=== PATIENT | female | born 1950 | race Caucasian/White ===

== ENCOUNTER 2017-02-03 17:18 | Inpatient (IN) | payer OTHER ==
[~2017-02-03] VITALS: Ht 172.7 cm; Wt 83.7 kg
[2017-02-03 17:59] LABS: HEMATOCRIT 40.8 % (36.0-46.0); MCH 29.4 PG (29.0-34.0); MCHC 33.3 G/DL (30.0-36.0); MCV 88.1 FL (83-99); MEAN PLAT.VOLUME 9.8 uM^3 (9.5-12.4); PLATELET COUNT 238 K/uL (156-360); RBC DIS.WIDTH-CV 12.5 % (11.8-14.6); RBC DIS.WIDTH-SD 40.4 % (39-53); RED BLOOD COUNT 4.63 M/uL (3.80-5.20); WHITE BLOOD COUNT 19.8 K/uL (4.1-10.2)
[2017-02-03 17:59] LABS: ADD MIUA? YES; BILIRUBIN NEGATIVE; BLOOD MODERATE; COLOR YELLOW ((YELLOW)); GLUCOSE (STRIP) 50; KETONES NEGATIVE; LEUKOCYTES LARGE; NITRITE NEGATIVE; PROTEIN (STRIP) >=500; SPECIFIC GRAVITY 1.011 (1.000-1.030); UROBILINOGEN 0.2 MG/DL (0.2-1.0)
[2017-02-03 18:10] LABS: CHLORIDE 108 mEq/L (99-109); POTASSIUM 4.2 mEq/L (3.7-5.4); SODIUM 137 mEq/L (136-147)
[2017-02-03 18:12] LABS: GLUCOSE 136 mg/dL (70-99)
[2017-02-03 18:13] LABS: ANION GAP 9 MEQ/L (2-14)
[2017-02-03 18:16] LABS: GFR ESTIMATE (CALCULATED) 23 mL/min/
[2017-02-03 18:17] LABS: UREA NITROGEN (BUN) 59 mg/dL (9-23)
[2017-02-03 18:23] LABS: BACTERIA 3+ /HPF; CASTS NONE SEEN /LPF; CRYSTALS NONE SEEN; EPITHELIAL CELLS 1+ /HPF; MUCUS NONE SEEN /LPF; UCUL ADDED? YES; WHITE BLOOD CELLS 40-50 /HPF (0-5)
[2017-02-03 18:46] LABS: POINT-OF-CARE METER ID UU13113702
[2017-02-03] MEDS ORDERED: CRESTOR10 MG PO (19:44)
[2017-02-03] MEDS ORDERED: CARVEDILOL25 MG PO (19:44)
[2017-02-03] MEDS ORDERED: CHLORTHALIDONE25 MG PO (19:44)
[2017-02-03] MEDS ORDERED: UNITHROID75 MCG PO (19:45)
[2017-02-03] MEDS ORDERED: ASPIR 8181 M1 PO (19:45)
[2017-02-03] MEDS ORDERED: PROZAC20 MG PO (19:45)
[2017-02-03] MEDS ORDERED: VITAMIN D32000 UNI1 PO (19:45)
[2017-02-03] MEDS ORDERED: ULORIC80 MG PO (19:45)
[2017-02-03] MEDS ORDERED: NOVOLOG 10100 UNITS/ SC (19:45)
[2017-02-03] MEDS ORDERED: TOUJEO SOL300 UNIT/1 SC (19:45)
[2017-02-03] MEDS ORDERED: BIOTIN10000 MC1 PO (19:46)
[2017-02-03] MEDS ORDERED: FISH OIL 1,2001 EAC4 PO (19:46)
[2017-02-03] MEDS ORDERED: BENICAR40 MG PO (19:46)
[2017-02-03 21:51] VITALS: BP 200/90
[2017-02-03 22:46] LABS: POINT-OF-CARE METER ID UU14314084
[2017-02-03 23:42] VITALS: BP 165/77
[2017-02-04 04:07] VITALS: BP 160/68
[2017-02-04 06:36] LABS: HEMATOCRIT 34.7 % (36.0-46.0); MCH 28.8 PG (29.0-34.0); MCHC 32.9 G/DL (30.0-36.0); MCV 87.6 FL (83-99); MEAN PLAT.VOLUME 9.7 uM^3 (9.5-12.4); PLATELET COUNT 200 K/uL (156-360); RBC DIS.WIDTH-CV 12.5 % (11.8-14.6); RBC DIS.WIDTH-SD 40.2 % (39-53); RED BLOOD COUNT 3.96 M/uL (3.80-5.20); WHITE BLOOD COUNT 17.8 K/uL (4.1-10.2)
[2017-02-04 07:00] LABS: ANION GAP 9 MEQ/L (2-14); CHLORIDE 113 MEQ/L (99-109); GFR ESTIMATE (CALCULATED) 25 mL/min/; GLUCOSE 127 mg/dL (70-99); POTASSIUM 4.4 MEQ/L (3.7-5.4); SAMPLE HEMOLYSIS CHECK 0; SAMPLE ICTERIC CHECK 0; SAMPLE LIPEMIA CHECK 0; SODIUM 139 MEQ/L (136-147); UREA NITROGEN (BUN) 53 mg/dL (9-23)
[2017-02-04 07:02] LABS: POINT-OF-CARE METER ID UU14314084
[2017-02-04 08:00] VITALS: BP 162/76
[2017-02-04 11:31] VITALS: BP 170/78
[2017-02-04 11:38] LABS: POINT-OF-CARE METER ID UU14314084
[2017-02-04 16:13] VITALS: BP 140/67
[2017-02-04 16:41] LABS: POINT-OF-CARE METER ID UU14162508
[2017-02-04 20:15] VITALS: BP 155/75
[2017-02-04 21:40] LABS: POINT-OF-CARE METER ID UU14314084
[2017-02-05 00:04] VITALS: BP 118/57
[2017-02-05 06:22] LABS: POINT-OF-CARE METER ID UU14314084
[2017-02-05 07:05] VITALS: BP 160/75
[2017-02-05 07:10] LABS: HEMATOCRIT 38.1 % (36.0-46.0); MCH 28.6 PG (29.0-34.0); MCV 89.2 FL (83-99); MEAN PLAT.VOLUME 9.7 uM^3 (9.5-12.4); PLATELET COUNT 217 K/uL (156-360); RBC DIS.WIDTH-CV 12.7 % (11.8-14.6); RBC DIS.WIDTH-SD 41.4 % (39-53); RED BLOOD COUNT 4.27 M/uL (3.80-5.20)
[2017-02-05 07:37] LABS: ANION GAP 9 MEQ/L (2-14); CHLORIDE 108 MEQ/L (99-109); GFR ESTIMATE (CALCULATED) 21 mL/min/; GLUCOSE 115 mg/dL (70-99); POTASSIUM 4.3 MEQ/L (3.7-5.4); SAMPLE HEMOLYSIS CHECK 0; SAMPLE ICTERIC CHECK 0; SAMPLE LIPEMIA CHECK 0; SODIUM 139 MEQ/L (136-147); UREA NITROGEN (BUN) 56 mg/dL (9-23)
[2017-02-05 11:21] LABS: POINT-OF-CARE METER ID UU14314084
[2017-02-05 16:11] LABS: POINT-OF-CARE METER ID UU14314084
[2017-02-05 17:50] VITALS: BP 188/84
[2017-02-05 21:48] LABS: POINT-OF-CARE METER ID UU14208750
[2017-02-06 00:35] VITALS: BP 126/65
[2017-02-06 06:13] LABS: POINT-OF-CARE METER ID UU14314084
[2017-02-06 06:18] LABS: HEMATOCRIT 34.6 % (36.0-46.0); MCH 28.9 PG (29.0-34.0); MCHC 32.7 G/DL (30.0-36.0); MCV 88.5 FL (83-99); MEAN PLAT.VOLUME 9.9 uM^3 (9.5-12.4); PLATELET COUNT 214 K/uL (156-360); RBC DIS.WIDTH-CV 12.5 % (11.8-14.6); RBC DIS.WIDTH-SD 40.2 % (39-53); RED BLOOD COUNT 3.91 M/uL (3.80-5.20); WHITE BLOOD COUNT 10.3 K/uL (4.1-10.2)
[2017-02-06 06:48] LABS: ANION GAP 12 MEQ/L (2-14); CHLORIDE 107 MEQ/L (99-109); GFR ESTIMATE (CALCULATED) 21 mL/min/; GLUCOSE 164 mg/dL (70-99); POTASSIUM 4.5 MEQ/L (3.7-5.4); SAMPLE HEMOLYSIS CHECK 0; SAMPLE ICTERIC CHECK 0; SAMPLE LIPEMIA CHECK 0; SODIUM 137 MEQ/L (136-147); UREA NITROGEN (BUN) 65 mg/dL (9-23)
[2017-02-06 08:23] VITALS: BP 158/74
[2017-02-06] MEDS ORDERED: CIPRO500 MG PO (09:59)
== END 2017-02-06 12:00 | disposition home or self-care (01) | DRG 690 ==
LOC: EME 17:18 → EDOF 19:40 → 2EAST 19:40 → ENRESERV 19:41 → 2EAST 21:46
PROVIDERS: Emergency Medicine; Hospitalist; Physician Assistant Medical
DX: N10 Acute pyelonephritis (principal); N17.9 Acute kidney failure, unspecified; I12.9 Hypertensive chronic kidney disease with stage 1 through stage 4 chronic kidney disease, or unspecified chronic kidney disease; N18.4 Chronic kidney disease, stage 4 (severe); E86.0 Dehydration; E83.52 Hypercalcemia; E87.2 Acidosis; E87.8 Other disorders of electrolyte and fluid balance, not elsewhere classified; E11.22 Type 2 diabetes mellitus with diabetic chronic kidney disease; E11.21 Type 2 diabetes mellitus with diabetic nephropathy; E11.65 Type 2 diabetes mellitus with hyperglycemia; B96.20 Unspecified Escherichia coli [E. coli] as the cause of diseases classified elsewhere; I25.10 Atherosclerotic heart disease of native coronary artery without angina pectoris; E78.5 Hyperlipidemia, unspecified; N25.81 Secondary hyperparathyroidism of renal origin; J45.909 Unspecified asthma, uncomplicated; E03.9 Hypothyroidism, unspecified; M1A.9XX0 Chronic gout, unspecified, without tophus (tophi); F32.9 Major depressive disorder, single episode, unspecified; F41.9 Anxiety disorder, unspecified; E55.9 Vitamin D deficiency, unspecified; M19.90 Unspecified osteoarthritis, unspecified site; Z79.4 Long term (current) use of insulin; Z79.82 Long term (current) use of aspirin; Z85.048 Personal history of other malignant neoplasm of rectum, rectosigmoid junction, and anus; Z87.440 Personal history of urinary (tract) infections; Z87.442 Personal history of urinary calculi; Z90.5 Acquired absence of kidney; Z93.3 Colostomy status; Z87.891 Personal history of nicotine dependence; Z88.2 Allergy status to sulfonamides
CPT/HCPCS: 74176; 80048; 81003; 82948; 85027; 87077; 87086; 87186; 99281; 99285; J0696; J1650; J1815; J7030

== ENCOUNTER 2017-02-15 16:10 | Inpatient (IN) | payer OTHER ==
[~2017-02-15] VITALS: Ht 154.9 cm; Wt 85.5 kg
[~2017-02-15 16:10] MED LIST: ASPIR 8181 M1 PO; BENICAR40 MG PO; BIOTIN10000 MC1 PO; CARVEDILOL25 MG PO; CHLORTHALIDONE25 MG PO; CIPRO500 MG PO; CRESTOR10 MG PO; FISH OIL 1,2001 EAC4 PO; NOVOLOG 10100 UNITS/ SC; PROZAC20 MG PO; TOUJEO SOL300 UNIT/1 SC; ULORIC80 MG PO; UNITHROID75 MCG PO; VITAMIN D32000 UNI1 PO
[2017-02-15 16:54] LABS: HEMOGLOBIN 11.9 G/DL (11.9-15.5); MCH 29.8 PG (29.0-34.0); MCV 87.5 FL (83-99); PLATELET COUNT 256 K/uL (156-360); RBC DIS.WIDTH-CV 12.4 % (11.8-14.6); RBC DIS.WIDTH-SD 39.7 % (39-53); WHITE BLOOD COUNT 17.3 K/uL (4.1-10.2)
[2017-02-15 17:04] LABS: CHLORIDE 110 mEq/L (99-109); POTASSIUM 5.1 mEq/L (3.7-5.4); SODIUM 134 mEq/L (136-147)
[2017-02-15 17:05] LABS: GLUCOSE 198 mg/dL (70-99)
[2017-02-15 17:09] LABS: GFR ESTIMATE (CALCULATED) 17 mL/min/
[2017-02-15 17:10] LABS: CREATININE 2.9 mg/dL (0.6-1.3); UREA NITROGEN (BUN) 75 mg/dL (9-23)
[2017-02-15 21:13] LABS: HEMOGLOBIN 10.9 G/DL (11.9-15.5); MCH 29.8 PG (29.0-34.0); MCHC 34.1 G/DL (30.0-36.0); MCV 87.4 FL (83-99); PLATELET COUNT 228 K/uL (156-360); RBC DIS.WIDTH-CV 12.2 % (11.8-14.6); RBC DIS.WIDTH-SD 39.6 % (39-53); RED BLOOD COUNT 3.66 M/uL (3.80-5.20); WHITE BLOOD COUNT 18.3 K/uL (4.1-10.2)
[2017-02-15 21:34] VITALS: BP 181/81
[2017-02-15 23:35] VITALS: BP 141/70
[2017-02-16 04:11] VITALS: BP 132/63
[2017-02-16 07:35] LABS: HEMATOCRIT 29.1 % (36.0-46.0); HEMOGLOBIN 9.4 G/DL (11.9-15.5); MCV 88.2 FL (83-99)
[2017-02-16 07:45] VITALS: BP 135/60
[2017-02-16 08:01] LABS: GLUCOSE 123 mg/dL (70-99); POTASSIUM 4.6 MEQ/L (3.7-5.4); UREA NITROGEN (BUN) 62 mg/dL (9-23)
[2017-02-16 08:02] LABS: CHLORIDE 116 MEQ/L (99-109); CREATININE 2.4 MG/DL (0.6-1.3); GFR ESTIMATE (CALCULATED) 21 mL/min/; SODIUM 141 MEQ/L (136-147)
[2017-02-16 11:52] VITALS: BP 162/76
[2017-02-16 16:27] VITALS: BP 147/70
[2017-02-16 16:28] LABS: C DIFF TOXIN NEGATIVE (NEGATIVE)
[2017-02-16 19:26] VITALS: BP 185/83
[2017-02-16 20:27] LABS: HEMATOCRIT 29.3 % (36.0-46.0); HEMOGLOBIN 9.8 G/DL (11.9-15.5); MCV 88.3 FL (83-99)
[2017-02-17 00:40] VITALS: BP 145/66
[2017-02-17 03:49] VITALS: BP 167/80
[2017-02-17 05:03] LABS: HEMATOCRIT 30.7 % (36.0-46.0); HEMOGLOBIN 9.9 G/DL (11.9-15.5); MCV 88.2 FL (83-99)
[2017-02-17 05:27] LABS: ALBUMIN 3.2 G/DL (3.2-4.8); CHLORIDE 114 MEQ/L (99-109); CREATININE 2.2 MG/DL (0.6-1.3); GFR ESTIMATE (CALCULATED) 24 mL/min/; GLUCOSE 123 mg/dL (70-99); PHOSPHORUS 3.1 mg/dL (2.5-4.9); POTASSIUM 4.4 MEQ/L (3.7-5.4); SODIUM 142 MEQ/L (136-147); UREA NITROGEN (BUN) 47 mg/dL (9-23)
[2017-02-17 07:19] VITALS: BP 178/81
[2017-02-17 11:56] VITALS: BP 153/70
[2017-02-17 15:10] VITALS: BP 184/85
[2017-02-17 20:00] VITALS: BP 155/81
[2017-02-17 20:09] LABS: HEMATOCRIT 30.5 % (36.0-46.0); HEMOGLOBIN 10.1 G/DL (11.9-15.5); MCV 88.4 FL (83-99)
[2017-02-18 00:01] VITALS: BP 162/77
[2017-02-18 03:24] VITALS: BP 161/75
[2017-02-18 05:38] LABS: HEMATOCRIT 28.1 % (36.0-46.0); HEMOGLOBIN 9.2 G/DL (11.9-15.5); MCH 28.7 PG (29.0-34.0); MCHC 32.7 G/DL (30.0-36.0); MCV 87.5 FL (83-99); PLATELET COUNT 211 K/uL (156-360); RBC DIS.WIDTH-CV 12.5 % (11.8-14.6); RBC DIS.WIDTH-SD 39.8 % (39-53); RED BLOOD COUNT 3.21 M/uL (3.80-5.20); WHITE BLOOD COUNT 9.2 K/uL (4.1-10.2)
[2017-02-18 06:03] LABS: CHLORIDE 112 MEQ/L (99-109); GFR ESTIMATE (CALCULATED) 26 mL/min/; GLUCOSE 130 mg/dL (70-99); PHOSPHORUS 3.1 mg/dL (2.5-4.9); POTASSIUM 4.5 MEQ/L (3.7-5.4); SODIUM 141 MEQ/L (136-147); UREA NITROGEN (BUN) 33 mg/dL (9-23)
[2017-02-18] MEDS ORDERED: FLAGYL500 MG PO (08:19)
[2017-02-18] MEDS ORDERED: LEVAQUIN500 MG PO (08:20)
[2017-02-18 08:30] VITALS: BP 180/82
== END 2017-02-18 11:28 | disposition home or self-care (01) | DRG 378 ==
LOC: EME 16:10 → ENRESERV 19:33 → CANRESERV 19:33 → EDOF 19:49 → 4EAST 19:49 → ENRESERV 19:50 → 4EAST 21:32
PROVIDERS: Family Medicine; Hospitalist; Internal Medicine
DX: K57.33 Diverticulitis of large intestine without perforation or abscess with bleeding (principal); C20 Malignant neoplasm of rectum; N17.9 Acute kidney failure, unspecified; I12.9 Hypertensive chronic kidney disease with stage 1 through stage 4 chronic kidney disease, or unspecified chronic kidney disease; E11.22 Type 2 diabetes mellitus with diabetic chronic kidney disease; E66.9 Obesity, unspecified; E03.9 Hypothyroidism, unspecified; E78.5 Hyperlipidemia, unspecified; F41.9 Anxiety disorder, unspecified; E86.0 Dehydration; J45.909 Unspecified asthma, uncomplicated; F32.9 Major depressive disorder, single episode, unspecified; I25.10 Atherosclerotic heart disease of native coronary artery without angina pectoris; E11.65 Type 2 diabetes mellitus with hyperglycemia; M10.9 Gout, unspecified; N18.4 Chronic kidney disease, stage 4 (severe); E87.2 Acidosis; N12 Tubulo-interstitial nephritis, not specified as acute or chronic; Z83.3 Family history of diabetes mellitus; Z93.3 Colostomy status; Z90.5 Acquired absence of kidney; Z92.21 Personal history of antineoplastic chemotherapy; Z90.710 Acquired absence of both cervix and uterus; Z87.891 Personal history of nicotine dependence; Z87.440 Personal history of urinary (tract) infections; Z87.442 Personal history of urinary calculi; Z82.49 Family history of ischemic heart disease and other diseases of the circulatory system; Z79.4 Long term (current) use of insulin; Z85.048 Personal history of other malignant neoplasm of rectum, rectosigmoid junction, and anus
CPT/HCPCS: 74176; 80048; 80069; 82948; 85014; 85018; 85027; 86850; 86900; 86901; 87493; 99281; 99285; C9113; J0360; J0744; J1815; J2543; J7030; J7050; J7120; S0030